=== PATIENT | male | born 1970 ===

== ENCOUNTER 2018-03-19 19:58 | Emergency (ER) | payer OTHER ==
[2018-03-19 20:21] VITALS: BP 148/84; PULSE 97; RESP 18; TEMP 98.4; O2SAT 99
--- NOTE | 2018-03-19 20:30 | C.PDOC ---
Time Seen by Provider: 03/19/18 20:23 Chief Complaint (Nursing): Medical Clearance Past Medical History Vital Signs: Last Vital Signs Temp 98.4 F 03/19/18 20:16 Pulse 97 H 03/19/18 20:16 Resp 18 03/19/18 20:16 BP 148/84 03/19/18 20:16 Pulse Ox 99 03/19/18 20:16 - Social History Hx Alcohol Use: No Hx Substance Use: No - Immunization History Hx Tetanus Toxoid Vaccination: No Hx Influenza Vaccination: No Hx Pneumococcal Vaccination: No ED Course And Treatment O2 Sat by Pulse Oximetry: 99 Disposition - Disposition Disposition: HOME/ ROUTINE Disposition Time: 20:28 Condition: STABLE Additional Instructions: Follow up with your PMD within 1-2 days. Return to ED if feel worse. Instructions: Nutrition Support - Clinical Impression Clinical Impression: Normal exam
--- NOTE | 2018-03-19 20:31 | C.PDOC ---
History Of Present Illness 47 y/o male presents to the ED for medical clearance. 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 Patient was notified by others who noticed his left baptist had was pulsating and looked swollen. He states he did not feel anything at the area and denies any headache , weakness, numbness, lightheadedness, or other complaints. Patient later became concerned so he came to the ED for further evaluation. Time Seen by Provider: 03/19/18 20:23 Chief Complaint (Nursing): Medical Clearance History Per: Patient History/Exam Limitations: no limitations Past Medical History Reviewed: Historical Data, Nursing Documentation, Vital Signs Vital Signs: Last Vital Signs Temp 98.4 F 03/19/18 20:16 Pulse 97 H 03/19/18 20:16 Resp 18 03/19/18 20:16 BP 148/84 03/19/18 20:16 Pulse Ox 99 03/19/18 20:42 - Medical History PMH: No Chronic Diseases Surgical History: Hernia Repair Family History: States: No Known Family Hx - Social History Hx Tobacco Use: No Hx Alcohol Use: No Hx Substance Use: No - Immunization History Hx Tetanus Toxoid Vaccination: No Hx Influenza Vaccination: No Hx Pneumococcal Vaccination: No Review Of Systems Except As Marked, All Systems Reviewed And Found Negative. Cardiovascular: Negative for: Light Headedness Neurological: Positive for: Other (pulsation of vein at left baptist). Negative for: Weakness, Numbness, Headache, Dizziness Physical Exam - Physical Exam Appears: Non-toxic, No Acute Distress Skin: Normal Color, Warm, Dry Head: Atraumatic, Normacephalic, No Tenderness, No Swelling, No Other (pulsation ) Eye(s): bilateral: Normal Inspection, PERRL, EOMI Ear(s): Bilateral: Normal Nose: Normal Oral Mucosa: Moist Neck: Normal ROM, No Paracervical Tenderness, Supple Cardiovascular: Rhythm Regular, No Murmur Respiratory: Normal Breath Sounds, No Rales, No Rhonchi, No Wheezing Neurological/Psych: Oriented x3, Normal Speech, Normal Cranial Nerves, No Other (focal deficits) Gait: Steady ED Course And Treatment O2 Sat by Pulse Oximetry: 99 (RA) Pulse Ox Interpretation: Normal Progress Note: Patient is asymptomatic and has no further complaints at this time. Reassured patient and family of normal exam findings. Patient is stable for d/c home. Disposition Counseled Patient/Family Regarding: Need For Followup, Rx Given - Disposition Disposition: HOME/ ROUTINE Disposition Time: 20:28 Condition: STABLE Additional Instructions: Follow up with your PMD within 1-2 days. Return to ED if feel worse. Instructions: Nutrition Support Forms: [facility] (Albanian) - Clinical Impression Clinical Impression: Normal exam - PA / SADDLE STITCHER / Resident Statement MD/DO has reviewed & agrees with the documentation as recorded. - Scribe Statement The provider has reviewed the documentation as recorded by the Scribe (Shanice Faust) All medical record entries made by the Scribe were at my direction and personally dictated by me. I have reviewed the chart and agree that the record accurately reflects my personal performance of the history, physical exam, medical decision making, and the department course for this patient. I have also personally directed, reviewed, and agree with the discharge instructions and disposition.
== END 2018-03-19 21:25 | disposition home or self-care (01) ==
LOC: C.ER 19:58
DX: Z04.8 Encounter for examination and observation for other specified reasons (principal)